=== PATIENT | male | born 1945 | race Hispanic/Latino ===

== ENCOUNTER 2017-11-20 08:52 | Outpatient (CLI) | payer MEDICARE, BC ==
[2017-11-20 11:06] LABS: Hemoglobin 14.2 g/dL (14.0-18.0); Mean Corpuscular HGB CONC 33.9 g/dL (32.0-36.0); Mean Corpuscular Hemoglobin 32.6 pg (27.0-31.0); Mean Corpuscular Volume 96.1 fL (78.0-98.0); Mean Platelet Volume 7.1 fL (7.4-10.4); Platelet Count 204 thou/uL (130-400); RBC Distribution Width 12.6 % (11.5-14.5); Red Blood Cell (RBC) Count 4.36 mill/uL (4.70-6.10); White Blood Cell (WBC) Count 6.5 thou/uL (4.8-10.8)
[2017-11-20 11:16] LABS: INR-International Normal Ratio 1.1; PTT 30.2 SEC (22.9-36.1); Prothrombin Time 13.8 SEC (12.0-14.7)
[2017-11-20 11:24] LABS: Anion Gap 12 mmol/L (10-20); BUN (Urea Nitrogen) 14 mg/dL (8.4-25.7); Calc. Creatinine Clearance 0 mL/min (70-130); Calcium 9.1 mg/dL (7.8-10.44); Carbon Dioxide 26 mmol/L (23-31); Chloride 102 mmol/L (98-107); Estimated GFR-MDRD Greater than 90; Glucose 111 mg/dL (83-110); Potassium 4.4 mmol/L (3.5-5.1); Sodium 136 mmol/L (136-145)
--- NOTE | 2017-11-20 13:36 | EKG ---
Test Reason : Blood Pressure : / mmHG Vent. Rate : 071 BPM Atrial Rate : 071 BPM P-R Int : 162 ms QRS Dur : 096 ms QT Int : 372 ms P-R-T Axes : 069 065 022 degrees QTc Int : 404 ms Normal sinus rhythm Nonspecific ST abnormality Abnormal ECG Confirmed by VIVIANA CHILDRESS ([id number]) on 11/20/2017 1:35:57 PM Referred By: FORTINO Confirmed By:VIVIANA CHILDRESS
== END 2017-11-20 08:53 | disposition home or self-care (01) ==
LOC: LABBT 08:52
PROVIDERS: ATTEND Urology
DX: Z01.818 Encounter for other preprocedural examination (principal); N40.1 Benign prostatic hyperplasia with lower urinary tract symptoms; R33.8 Other retention of urine
CPT/HCPCS: 80048; 85027; 85610; 85730; 86850; 86900; 86901; 93005; 93010

== ENCOUNTER 2017-11-26 09:33 | Observation (INO) | payer MEDICARE, BC ==
[2017-11-26] MEDS ORDERED: Levofloxacin 500 mg/D5W 100 ml Premix Bag ONE (10:40)
[2017-11-26] MEDS ORDERED: B & O ONE (11:32)
[2017-11-26] MEDS ORDERED: Fentanyl 100 MCG/2 ML VIAL ONE (11:53)
--- NOTE | 2017-11-26 12:11 | RAD ---
PA AND LATERAL OF THE CHEST: INDICATION: Preop evaluation. COMPARISON: Prior exam dated 09/23/13 and 02/21/14. FINDINGS: The extent of the pleural thickening involving the right lung base has improved. There are some resi dual patchy interstitial opacities within the right lower lobe which may reflect scarring and/or atel ectasis. No definite focal contusion is evident. The left lung is clear. There are vascular calcif ications involving the aortic arch. No acute osseous abnormality is demonstrated. IMPRESSION: 1. Improvement in the right-sided pleural effusion. 2. Residual interstitial prominence in the in the right lower lobe may reflect atelectasis or scarri ng. No focal consolidation is evident. The left lung is clear. POS: JENELLE
[2017-11-26] MEDS ORDERED: HumaLOG 300 UNITS/3 ML VIAL SC PRN (13:45)
[2017-11-26] MEDS ORDERED: Hyoscyamine Sulfate SL 0.125 mg Tablet SL PRN (13:45)
[2017-11-26] MEDS ORDERED: Dextrose 5% in Water 1,000 ML IV PRN (13:45)
[2017-11-26] MEDS ORDERED: Bisacodyl 10 MG SUPP PR PRN (13:45)
[2017-11-26] MEDS ORDERED: Acetaminophen 500 MG TAB PO PRN (13:45)
[2017-11-26] MEDS ORDERED: Dextrose 50% Abboject 50 ML SYRINGE SLOW IVP PRN (13:45)
[2017-11-26] MEDS ORDERED: diphenhydrAMINE 25 MG CAP PO PRN (13:45)
[2017-11-26] MEDS ORDERED: Morphine 4 MG/ML Carpuject IVP PRN (13:45)
[2017-11-26] MEDS ORDERED: hydrALAZINE 20 MG/ML VIAL SLOW IVP PRN (13:45)
[2017-11-26] MEDS ORDERED: Oxybutynin 5 MG TAB PO PRN (13:45)
[2017-11-26] MEDS ORDERED: Ondansetron HCl/PF 4 MG/2 ML Vial IVP PRN ×2 (13:45→14:53)
[2017-11-26] MEDS ORDERED: Mag-Al 1200 mg/1200 mg/30 ML UDCUP PO PRN (13:45)
[2017-11-26] MEDS ORDERED: traMADol HCl 50 MG TAB PO PRN (13:50)
[2017-11-26] MEDS ORDERED: Metoclopramide HCl 10 MG/2 ML VIAL ONE (14:33)
[2017-11-26] MEDS ORDERED: PROPOFOL 200 MG/20 ML VIAL ONE (14:33)
[2017-11-26] MEDS ORDERED: Dexamethasone 20 MG/5 ML VIAL ONE (14:33)
[2017-11-26] MEDS ORDERED: Lidocaine 1% PF 5 ML VIAL ONE (14:33)
[2017-11-26] MEDS ORDERED: Ondansetron HCl/PF 4 MG/2 ML Vial ONE (14:33)
[2017-11-26 14:43] LABS: Anion Gap 14 mmol/L (10-20); BUN (Urea Nitrogen) 13 mg/dL (8.4-25.7); Calc. Creatinine Clearance 97 mL/min (70-130); Calcium 8.5 mg/dL (7.8-10.44); Carbon Dioxide 22 mmol/L (23-31); Chloride 107 mmol/L (98-107); Estimated GFR-MDRD Greater than 90; Glucose 108 mg/dL (83-110); Potassium 4.3 mmol/L (3.5-5.1); Sodium 139 mmol/L (136-145)
[2017-11-26] MEDS ORDERED: Promethazine HCl 25 MG/ML VIAL IM PRN (14:53)
[2017-11-26] MEDS ORDERED: Promethazine HCl 25 MG/ML VIAL SLOW IVP PRN (14:53)
[2017-11-26] MEDS ORDERED: Nitroglycerin 0.4 MG TAB (25 Tab Bottle) SL PRN (15:20)
--- NOTE | 2017-11-26 17:23 | OP ---
DATE OF SURGERY: 11/26/2017 SERVICE: Urology. SURGEON: Samuel Paul M.D. PREOPERATIVE DIAGNOSIS: Benign prostatic hypertrophy with urinary retention. POSTOPERATIVE DIAGNOSIS: Benign prostatic hypertrophy with urinary retention. PROCEDURE PERFORMED: Transurethral resection of the prostate. INDICATIONS FOR PROCEDURE: Mr. Cervantes is a 72-year-old male who has had urinary retention a nd currently performs CIC. He is able to void on his own, but is not able to empty his bladder compl etely. Therefore, currently does intermittent catheterization 2-3 times a day. We discussed TURP an d cystoscopy did demonstrate significantly obstructive prostate with large median lobe. After discus kortney of risks and benefits, he agreed to proceed for the surgery. DESCRIPTION OF PROCEDURE: After identification of armband and verification of consent, the patient w as brought back to the operating room where he underwent general anesthesia with an LMA. He was then placed in dorsal lithotomy position and prepped and draped in usual sterile fashion. After appropri ate timeout, a lubricated 26 Bel[place]an resectoscope sheath with visual obturator was passed through the urethra. Near the membranous urethra, there was a flimsy stricture which was difficult to navigate p ast with the resectoscope to avoid causing significant mucosal trauma. The resectoscope was removed and a 17-Belizean rigid cystoscope was brought in and was navigated past the strictured area. The scop e was maneuvered around in all 4 quadrants to ensure adequate mobility of the stricture. The scope w as then removed and the visual obturator with resectoscope sheath was reintroduced back to the urethr a. There appeared to be good opening of the strictured area and so the resectoscope was able to be p assed all the way into the bladder. The visual obturator was then changed out for the bipolar resect oscope loop. The ureteral orifices were marked proximal and medial to the actual UO with the bipolar cautery function for later identification. Resection was started on the median lobe and resected ou t completely on the cutting current. The lateral lobes, anterior prostate and the rest of the median lobe was then resected all the way back to the verumontanum, taking care not to pass the verumontanu m to avoid sphincteric injury. Relaxing incisions were made at 5 and 7 o'clock on the prostate to im prove the bladder neck size. Upon completion, there was extremely good hemostasis and prostate was w mick open. All prostate chips were evacuated using the Spaseebo evacuator. Final and meticulous hemosta sis was performed of all visible vessels. Once there was assurance of complete hemostasis and all pr ostate chips were removed, both ureters were identified in orthotopic location unharmed. The resecto scope was then removed entirely and a 22-Belizean three-way Hood catheter was introduced with ease thr ough the urethra into the bladder with 30 mL of sterile water instilled into the balloon. This was i rrigated and found to be completely clear. CBI was initiated. The patient has catheter secured with a StatLock and a 16A B&O suppository placed in his rectum. He was then taken out of lithotomy, awak ened and taken to PACU for recovery in stable condition. COMPLICATIONS: None. ESTIMATED BLOOD LOSS: 40 mL. RETAINED TUBES AND DRAINS: A 22-Belizean three-way Hood catheter on CBI. SPECIMENS: Prostate chips. DISPOSITION: The patient will be kept in the hospital overnight and be discharged in the morning aft er a void trial.
[2017-11-26] MEDS: metFORMIN 850 MG TAB PO SCH (20:23)
[2017-11-26 20:35] VITALS: BMI 27.2
[2017-11-26] MEDS: Docusate 100 MG CAP PO SCH (20:46)
[2017-11-26] MEDS ORDERED: Atorvastatin Calcium 20 MG TAB PO SCH (21:00)
[2017-11-26] MEDS ORDERED: metFORMIN 850 MG TAB PO SCH (23:00)
[2017-11-27 05:53] LABS: #Eosinphils 0.2 thou/uL (0.0-0.7); #Lymphocytes 2.5 thou/uL (1.20-3.40); #Monocytes 0.8 thou/uL (0.11-0.59); #Neutrophils 6.1 thou/uL (1.40-6.50); %Basophils 0.5 % (0.0-1.0); %Lymphocytes 25.8 % (21.0-51.0); %Monocytes 8.7 % (0.0-10.0); Hemoglobin 13.8 g/dL (14.0-18.0); Mean Corpuscular HGB CONC 32.3 g/dL (32.0-36.0); Mean Corpuscular Hemoglobin 31.3 pg (27.0-31.0); Mean Corpuscular Volume 96.9 fL (78.0-98.0); Mean Platelet Volume 6.7 fL (7.4-10.4); Platelet Count 231 thou/uL (130-400); RBC Distribution Width 12.4 % (11.5-14.5); White Blood Cell (WBC) Count 9.7 thou/uL (4.8-10.8)
[2017-11-27 05:59] LABS: Anion Gap 12 mmol/L (10-20); BUN (Urea Nitrogen) 15 mg/dL (8.4-25.7); Calc. Creatinine Clearance 94 mL/min (70-130); Calcium 8.5 mg/dL (7.8-10.44); Carbon Dioxide 25 mmol/L (23-31); Chloride 104 mmol/L (98-107); Estimated GFR-MDRD Greater than 90; Glucose 81 mg/dL (83-110); Potassium 4.3 mmol/L (3.5-5.1); Sodium 137 mmol/L (136-145)
[2017-11-27] MEDS: metFORMIN 850 MG TAB PO SCH ×3 (08:30→11:43)
[2017-11-27] MEDS ORDERED: glyBURIDE 2.5 MG TAB PO SCH (09:00)
[2017-11-27] MEDS ORDERED: Polyethylene Glycol 3350 17 GM Packet PO PRN (09:00)
[2017-11-27] MEDS ORDERED: Multivitamin W/ Minerals 1 TAB PO SCH (09:00)
[2017-11-27] MEDS ORDERED: Calcium Carbonate + Vit D 250 MG TAB PO SCH (09:00)
[2017-11-27] MEDS: Docusate 100 MG CAP PO SCH (09:04)
[2017-11-27 11:22] VITALS: BP 110/56; TEMP 98.4
== END 2017-11-27 14:50 | disposition home or self-care (01) ==
LOC: SDC 09:33 → SJJU 13:45
PROVIDERS: ADMIT Urology; ATTEND Urology
PROC: 0VT08ZZ Resection of Prostate, Via Natural or Artificial Opening Endoscopic (ICD-10-PCS; principal; 2017-11-26)
DX: N41.1 Chronic prostatitis (principal); N40.1 Benign prostatic hyperplasia with lower urinary tract symptoms; R33.8 Other retention of urine; N35.011 Post-traumatic bulbous urethral stricture; G47.30 Sleep apnea, unspecified; E11.9 Type 2 diabetes mellitus without complications; Z88.8 Allergy status to other drugs, medicaments and biological substances; Z79.84 Long term (current) use of oral hypoglycemic drugs; Z79.82 Long term (current) use of aspirin; Z79.899 Other long term (current) drug therapy; Z87.891 Personal history of nicotine dependence
CPT/HCPCS: 51798; 52601; 71046; 80048 ×2; 82962 ×2; 85025; 88305; 96365; 96366; G0378; 36415; 36416; J0131; J1100; J1956; J2001; J2405; J2704; J2765; J3010

== ENCOUNTER 2019-01-22 23:47 | Inpatient (IN) | payer MEDICARE, BC ==
[2019-01-23 00:41] LABS: #Basophils 0.2 thou/uL (0.0-0.2); #Eosinphils 0.2 thou/uL (0.0-0.7); #Lymphocytes 3.6 thou/uL (1.20-3.40); #Monocytes 0.7 thou/uL (0.11-0.59); #Neutrophils 8.8 thou/uL (1.40-6.50); %Basophils 1.5 % (0.0-1.0); %Eosinophils 1.6 % (0.0-10.0); %Lymphocytes 26.7 % (21.0-51.0); %Monocytes 5.4 % (0.0-10.0); %Neutrophils 64.8 % (42.0-75.0); Hemoglobin 13.8 g/dL (14.0-18.0); Mean Corpuscular HGB CONC 33.7 g/dL (32.0-36.0); Mean Corpuscular Hemoglobin 32.3 pg (27.0-31.0); Mean Corpuscular Volume 95.6 fL (78.0-98.0); Platelet Count 251 thou/uL (130-400); Red Blood Cell (RBC) Count 4.28 mill/uL (4.70-6.10); White Blood Cell (WBC) Count 13.6 thou/uL (4.8-10.8)
[2019-01-23] MEDS ORDERED: Ondansetron PF 4 MG/2 ML Vial ONE (00:44)
[2019-01-23] MEDS ORDERED: Morphine 4 MG/ML VIAL ONE (00:44)
[2019-01-23 01:03] LABS: ALT (SGPT) 36 U/L (8-55); AST (SGOT) 42 U/L (5-34); Albumin 3.8 g/dL (3.4-4.8); Alkaline Phosphatase 78 U/L (40-150); Anion Gap 17 mmol/L (10-20); BUN (Urea Nitrogen) 17 mg/dL (8.4-25.7); Bilirubin, Total 0.5 mg/dL (0.2-1.2); Calc. Creatinine Clearance 0 mL/min (70-130); Calcium 8.9 mg/dL (7.8-10.44); Carbon Dioxide 21 mmol/L (23-31); Chloride 100 mmol/L (98-107); Estimated GFR-MDRD Greater than 90; Globulin 2.6 g/dL (2.4-3.5); Glucose 142 mg/dL (83-110); Lipase Less than 4 U/L (8-78); Potassium 4.2 mmol/L (3.5-5.1); Protein, Total 6.4 g/dL (5.8-8.1); Sodium 134 mmol/L (136-145)
[2019-01-23 02:30] LABS: Bilirubin Negative (Negative); Blood, Urine Negative (Negative); Clarity Clear (Clear); Glucose, Urine (Dipstick) Normal (Negative); Leukocyte Negative Leu/uL (Negative); Nitrite Negative (Negative); Protein, Urine (Dipstick) 10 mg/dL (Neg-Trace); Urobilinogen Normal mg/dL (Less than 2)
[2019-01-23] MEDS ORDERED: Lidocaine 1% (PF) 30 ML VIAL ONE (02:53)
[2019-01-23] MEDS ORDERED: Morphine 2 MG/ML SYRINGE SLOW IVP PRN (03:25)
[2019-01-23] MEDS ORDERED: Dextrose 50% Abboject 50 ML SYRINGE SLOW IVP PRN ×2 (03:25→03:29)
[2019-01-23] MEDS ORDERED: hydrALAZINE 20 MG/ML VIAL SLOW IVP PRN (03:25)
[2019-01-23] MEDS ORDERED: Promethazine HCl 25 MG/ML VIAL IM PRN (03:25)
[2019-01-23] MEDS ORDERED: Dextrose 5% in Water 1,000 ML IV PRN ×2 (03:25→03:29)
[2019-01-23] MEDS ORDERED: Ondansetron PF 4 MG/2 ML Vial IVP PRN (03:25)
--- NOTE | 2019-01-23 04:19 | HP ---
CHIEF COMPLAINT: Sudden right-sided abdominal pain. HISTORY OF PRESENT ILLNESS: The patient is a 73-year-old male, who had the spontaneous onset of severe right-sided abdominal pain that radiated to his shoulder and down to his pelvis at approximately 6:00 p.m. while watching television. It was a 10/10 in pain. No trauma. No previous episodes. PAST MEDICAL HISTORY: Diabetes, hypertension, sleep apnea, hyperlipidemia. PAST SURGICAL HISTORY: He has had a colonoscopy, urethral stricture repair, and a sleeve gastrectomy in 2013. MEDICATIONS: 1. Aspirin. 2. Metformin. 3. Lipitor. SOCIAL HISTORY: He is . No tobacco. No alcohol. ALLERGIES: 1. BYETTA. 2. JANUVIA. PHYSICAL EXAMINATION: VITAL SIGNS: Temperature 98.2, pulse 84, blood pressure 97/56. GENERAL: He is awake, alert, in some pain. HEENT: No jaundice. LUNGS: Clear. HEART: Regular rate and rhythm. ABDOMEN: Obese. There is an asymmetric swelling at the right side of his abdomen. It is extremely tender on the right side. LABORATORY DATA: His white count is 13.6, H and H of 13.8 and 40.9, platelet count 251. PT is 13.8, PTT is 30.2. Electrolytes; glucose is 142, otherwise fine. His AST is 42, ALT of 36, alkaline phosphatase 78, bilirubin of 0.5. CT scan shows a right lobe liver mass with active extravasation of blood and a subcapsular hematoma with some intraperitoneal bleeding. ASSESSMENT: Hepatic mass with spontaneous bleeding. PLAN: The plan is to type and cross. Interventional Radiology embolization. Job ID: [id number]
[2019-01-23 04:45] VITALS: BMI 26.9
[2019-01-23] MEDS: Sodium Chloride 0.9% 1,000 ML IV SCH ×2 (05:12→11:13)
[2019-01-23] MEDS: Morphine 4 MG/ML VIAL SLOW IVP PRN ×2 (05:52→08:00)
[2019-01-23 06:19] LABS: #Lymphocytes 1.1 thou/uL (1.20-3.40); #Monocytes 0.4 thou/uL (0.11-0.59); #Neutrophils 7.5 thou/uL (1.40-6.50); %Basophils 0.4 % (0.0-1.0); %Eosinophils 0.2 % (0.0-10.0); %Lymphocytes 12.4 % (21.0-51.0); %Monocytes 4.3 % (0.0-10.0); %Neutrophils 82.6 % (42.0-75.0); Hemoglobin 12.9 g/dL (14.0-18.0); Mean Corpuscular HGB CONC 33.9 g/dL (32.0-36.0); Mean Corpuscular Hemoglobin 32.9 pg (27.0-31.0); Mean Corpuscular Volume 97.1 fL (78.0-98.0); Mean Platelet Volume 6.6 fL (7.4-10.4); Platelet Count 248 thou/uL (130-400); RBC Distribution Width 12.8 % (11.5-14.5); Red Blood Cell (RBC) Count 3.93 mill/uL (4.70-6.10); White Blood Cell (WBC) Count 9.1 thou/uL (4.8-10.8)
[2019-01-23 06:39] LABS: Anion Gap 15 mmol/L (10-20); BUN (Urea Nitrogen) 15 mg/dL (8.4-25.7); Calc. Creatinine Clearance 95 mL/min (70-130); Calcium 8.4 mg/dL (7.8-10.44); Carbon Dioxide 22 mmol/L (23-31); Chloride 102 mmol/L (98-107); Estimated GFR-MDRD Greater than 90; Glucose 129 mg/dL (83-110); Potassium 4.6 mmol/L (3.5-5.1); Sodium 134 mmol/L (136-145)
[2019-01-23 07:03] LABS: HBCM Index 0.05 S/CO (0-0.79); HBSAg Index 0.16 S/CO (0-0.99); Hep A IgM AB Non-Reactive (NonReactive); Hep B Surf Ag Non-Reactive S/CO (NonReactive); Hep C IgG Ab Non-Reactive (NonReactive); Hep C Index 0.03 S/CO (0-0.79); Hepatitis B Core IgM Abs Non-Reactive (NonReactive)
[2019-01-23] MEDS: Famotidine/PF 20 mg/2ml Vial SLOW IVP SCH ×2 (08:26→21:05)
[2019-01-23] MEDS ORDERED: Multivitamins, Adult 10 ML, Folic Acid 1 MG, Thiamine HCl 100 MG in Dextrose 5 %-0.45 %... IV SCH (09:00)
--- NOTE | 2019-01-23 09:12 | CT ---
PRELIMINARY REPORT/[facility]/EMERGENCY AFTER HOURS PROCEDURE: EXAM: CT Abdomen and Pelvis With Contrast EXAM DATE/TIME: 01/23/2019 1:11 AM CLINICAL HISTORY: 73 years old, male; Abdominal pain; Patient HX: PT reports R sided pain starting at 1800, pain goes f rom his R shoulder to his R groin, pain is to the lateral side of body, no trauma. TECHNIQUE: Imaging protocol: Computed tomography of the abdomen and pelvis with intravenous contrast. COMPARISON: No relevant prior studies available. FINDINGS: Lungs: There is subpleural atelectasis of the dependent portions of the lungs. Liver: There is a 9.5 x 6.9 x 9.7 cm right liver mass which extends to the liver capsule with surroun ding hyperdense fluid in the perihepatic region suggestive of capsular rupture and small perihepatic hemorrhage. Gallbladder and bile ducts: Normal. No calcified stones. No ductal dilation. Pancreas: The pancreas appears normal. No ductal dilatation. Spleen: The spleen is normal. Adrenals: Normal. No mass. Kidneys and ureters: Normal. No hydronephrosis. Stomach and bowel: Unremarkable. No obstruction. No mucosal thickening. Appendix: No evidence of appendicitis. Intraperitoneal space: There is also complex ascites within the pelvis and left upper quadrant consis tent with hemorrhage. Vasculature: The vasculature demonstrates diffuse mild atherosclerotic calcification. Lymph nodes: Unremarkable. No enlarged lymph nodes. Bladder: Unremarkable as visualized. Reproductive: Unremarkable as visualized. Bones/joints: Unremarkable. No acute fracture. Soft tissues: Unremarkable. IMPRESSION: Right subcapsular liver mass with rupture and small to moderate hemorrhagic ascites. THIS REPORT CONTAINS FINDINGS THAT MAY BE CRITICAL TO PATIENT CARE. The findings were verbally communicated via t elephone conference with JOSE MARTIN PATTERSON at 2:12 AM CDT on 01/23/2019. The findings were acknowledged and understood. Thank you for allowing us to participate in the care of your patient. Dictated and Authenticated by: Kai Smith MD 01/23/2019 2:18 AM Central Time ([place] & [place]) FINAL REPORT ABDOMEN CT WITH CONTRAST PELVIC CT WITH CONTRAST: HISTORY: Right-sided pain. COMPARISON: 09/23/2013. FINDINGS: ABDOMEN CT: Lung bases are clear. There are coronary calcifications. There is a heterogeneous mass in the right hepatic lobe measuring 8.8 cm anterior posterior x 6.1 cm mediolateral x approximately 7.7 cm craniocaudal. This mass extends into the hepatic capsule and the re is adjacent hyperdense fluid. There is linear enhancement within this fluid suggesting active ext ravasation of contrast. There is evidence of arterial phase enhancement within this lesion. Overall , this mass has a heterogeneous attenuation. There is complex fluid in the upper abdomen, including the perisplenic region. CT evidence of sludge and stones without evidence of cholecystitis. Bowel gas pattern is nonspecific. There is complex fluid in the pelvis. IMPRESSION: This report is in agreement with the preliminary report by [facility]. There is a complex mass in the right hepatic lobe with evidence of probable hemorrhage and rupture. There is extravasated contrast in th e hyperdense right perihepatic fluid. Additional complex hemorrhagic fluid is noted in the left uppe r quadrant and pelvis. POS: OFF
--- NOTE | 2019-01-23 09:14 | RAD ---
CHEST 1 VIEW: HISTORY: Pain upon inspiration. COMPARISON: 11/26/2017. FINDINGS: Portable upright chest demonstrates a normal cardiac silhouette. The pulmonary vessels and hilum are normal. Blunting of both costophrenic angles likely due to atelectasis. No consolidation or masses . No pneumothorax or osseous abnormalities. IMPRESSION: Blunting of both costophrenic angles likely due to atelectasis. POS: OFF
[2019-01-23 12:54] LABS: Hemoglobin 13.8 g/dL (14.0-18.0)
[2019-01-23] MEDS ORDERED: ISOVUE-370 76%-LOCM 1 ML ONE (13:01)
[2019-01-23] MEDS ORDERED: Furosemide 20 MG/2 ML VIAL SLOW IVP SCH (13:15)
[2019-01-23] MEDS ORDERED: glyBURIDE 5 MG TAB PO SCH (13:15)
--- NOTE | 2019-01-23 13:32 | CON ---
DATE OF CONSULTATION: 01/23/2019 SERVICE: Pulmonary Medicine. REASON FOR CONSULTATION: ICU patient. HISTORY OF PRESENT ILLNESS: The patient is a pleasant 73-year-old male with past medical history significant for liver lesion. He started having onset of abdominal pain that radiated into his shoulder. Ultimately, he was discovered to have a bleeding lesion in the liver. He went for embolization and was tucked into the ICU afterwards. At this point, his abdominal discomfort is much improved. He still has a pleuritic pain whenever he takes a deep breath, but more so when he breathes out completely. This was a sudden onset of abdominal discomfort and prior to this event, he is in his usual state of health. He currently denies any shortness of breath, cough, nausea, or vomiting. He has had normal bowel movements today. PAST MEDICAL HISTORY: 1. Type 2 diabetes mellitus. 2. Obstructive sleep apnea. 3. Dyslipidemia. 4. Hypertension. PAST SURGICAL HISTORY: 1. Colonoscopy. 2. Repair of urethral stricture. 3. Gastric sleeve surgery in 2013. 4. Embolization of liver lesion. SOCIAL HISTORY: Negative for alcohol, tobacco, or illicit drug use. He is . He has no exposure to chemicals, dust, or tuberculosis. Apparently, he did have some asbestos exposure when he was younger. FAMILY HISTORY: Noncontributory. ALLERGIES: ABILIO WALL. MEDICATIONS: List of his inpatient medications were reviewed. No specific updates were made at this time. REVIEW OF SYSTEMS: General, head, ears, eyes, nose, throat, cardiovascular, respiratory, GI, , musculoskeletal, neurologic, and skin is negative except as mentioned in the HPI. PHYSICAL EXAMINATION: VITAL SIGNS: Afebrile; pulse 74; blood pressure 160/73; respirations 21; and saturation 96%, currently on room air. GENERAL: The patient is awake and alert, in no apparent distress. LUNGS: Very good air entry. No prolonged expiratory phase. Dependent crackles are noted. HEART: Normal rate, regular. ABDOMEN: Distended. Bowel sounds are positive. There is some tenderness to palpation, particularly in the right upper quadrant. Minimal rebound is present. No guarding. MUSCULOSKELETAL: No cyanosis or clubbing. 2 to 3+ pitting is present in bilateral lower extremities. NEUROLOGIC: Grossly nonfocal. GENITOURINARY: No Hood catheter in place. LABORATORY DATA: Hemoglobin 13.8 and stable. CBC was normal as of this morning. Basic metabolic profile is normal. Troponin is negative x1. Amylase and liver function studies are essentially unremarkable. AFP is 5.8, falling within the normal limits. Urinalysis is negative. Hepatitis A, B, and C are all nonreactive. IMAGING DATA: CT of the abdomen demonstrates right subcapsular liver mass with rupture and [id number] hemorrhagic ascites. This liver does not have a cirrhotic morphology. In 2013, I could not see a liver lesion. ASSESSMENT: 1. Subcapsular liver hemorrhage, status post embolization. 2. Acute blood loss anemia, stable. 3. Liver mass, possible. DISCUSSION AND PLAN: I will give him a brief course of steroids to see if this helps the pleuritic discomfort. This will be 20 mg on a daily basis. Since I am doing this, we will give him some GI prophylaxis. Banana bag will be interrupted. I will provide him with a dose of Lasix right now as he is a touch volume up. If his hemoglobin remains stable, he will be a candidate for transition to the floor. Eventually, he will need investigation into this liver lesion, but this will likely need to be postponed until the bleeding stops and has some time to clear. When he leaves the ICU, he will have no further requirement for pulmonary or critical care opinion and I will sign off. Please call with any change to his condition. 70 minutes have been devoted to this patient in various activities. I personally reviewed all imaging studies and laboratory data noted within this document. For fifty percent of this time, I was interacting with the patient at the bedside or coordinating care with the care team. For the remainder of the time I was immediately available to the patient in the hospital unit. Job ID: [id number] MTDD
--- NOTE | 2019-01-23 15:14 | PRG ---
DATE OF SERVICE: 01/23/2019 SUBJECTIVE: The patient is having some pain, but it is better. OBJECTIVE: VITAL SIGNS: On examination, he is afebrile, pulse 74, and blood pressure 127/67. GENERAL: He is awake, alert. ABDOMEN: Distended. Mild tenderness. LABORATORY DATA: His white count is down to 9.1, H and H are stable at 13.8 and 40.9. His alpha-fetoprotein marker is normal at 5.8. ASSESSMENT: Liver mass of unclear etiology, causing bleeding. PLAN: Continue workup by GI. Transferred to floor. Job ID: [id number]
[2019-01-23 15:18] LABS: Hemoglobin 13.3 g/dL (14.0-18.0)
[2019-01-23] MEDS: Insulin Regular 300 UNITS/3 ML VIAL SC PRN ×2 (15:54→21:06)
--- NOTE | 2019-01-23 16:47 | CON ---
DATE OF CONSULTATION: CHIEF COMPLAINT: Abdominal pain. HISTORY OF PRESENT ILLNESS: Mr. Cervantes is a 73-year-old man, who had sudden onset right upper quadrant abdominal pain, which was severe and sharp at 6 p.m. last night. The pain persisted. He went onto the emergency room for further care. He had a CT scan of the abdomen and pelvis performed that showed active bleeding into a right subcapsular liver mass with rupture and hemorrhagic ascites. The liver mass measured 9.5 x 9.7 cm. He underwent embolization emergently by Dr. Teran last night with coiling of the artery supplying the liver lesion. The patient's pain has since improved and he has had no further signs of ongoing bleeding. His hemoglobin is stable. GI was consulted to further evaluate the source of the original liver mass. The patient has had no nausea or vomiting. He did have a gastric sleeve surgery 5 years ago and states he lost 100 to 150 pounds since then. He has lost maybe 5 pounds over the last 6 months. He has had no diarrhea, constipation, or blood in the stool. No jaundice or itching. No prior known liver problems or cirrhosis. PAST MEDICAL HISTORY: 1. Diabetes mellitus, type 2. 2. Obstructive sleep apnea. 3. Hyperlipidemia. 4. Hypertension. 5. He reports an episode of pancreatitis a few years ago secondary to [place]. 6. Colon polyps removed. His last colonoscopy was several years ago and Dr. Barger has followed him for these. He states that he is due for colonoscopy now. This will need to be verified with the patient's record. FAMILY HISTORY: Positive for prostate cancer in his brother. His sister had ovarian cancer. SOCIAL HISTORY: He had social alcohol use around once per week in the past. No alcohol in the last few years. He quit smoking a few years ago. No drugs. ALLERGIES: JANUVIA AND BYETTA. MEDICATIONS: Prior to admission, include; 1. Aspirin 81 mg daily. 2. Calcium with vitamin D. 3. Atorvastatin. 4. Metformin. 5. Glyburide. REVIEW OF SYSTEMS: Negative x10 systems reviewed except as stated in history of present illness. PHYSICAL EXAMINATION: VITAL SIGNS: Temperature is 98.3, pulse 73, and blood pressure 94/54. GENERAL: He is in no acute distress. Alert and oriented x3. HEENT: Eyes have no scleral icterus. Oropharynx is clear without lesions. No cervical or supraclavicular lymphadenopathy. LUNGS: Clear to auscultation bilaterally. HEART: Regular rate and rhythm without murmur. ABDOMEN: Soft. Mild tenderness in the right upper quadrant without guarding. Bowel sounds are present. EXTREMITIES: No lower extremity edema. LABORATORY DATA: White blood cell count 9.1, hemoglobin is 13.3 and unchanged since midnight last night to 1510 hours this afternoon. Creatinine 0.74, bilirubin 0.5, AST 42, ALT 36, alkaline phosphatase 78, and albumin 3.8. His alpha-fetoprotein is 5.8. Viral hepatitis screen for acute viral hepatitis is negative. IMPRESSION: 1. Complex liver mass in the right lobe of the liver with hemorrhage and rupture and hemorrhagic ascites. This was treated with embolization by Vascular Surgery. He has no signs of ongoing bleeding and his pain has improved. 2. Regarding the liver mass, the question is whether or not this is malignant or not. His alpha-fetoprotein is normal, which makes a primary hepatoma less likely. There is no known prior history of cirrhosis. He has had a colonoscopy; however, the exact time of this will have to be reviewed in the office record. He has been followed by Dr. Barger previously. This could be a benign lesion as well. RECOMMENDATIONS: 1. After he reabsorbs some of the blood and clot, then reimaging of the mass with MRI may help better differentiate what the cause of the mass is. He is not a candidate for biopsy currently, but at some point in future this might become necessary. For now, we will just monitor clinically. Follow his hemoglobin, and once he stabilized from a bleeding standpoint, then I would expect he would be able to go home in a couple of days or so. 2. Dr. Barger will pick back up tomorrow. Job ID: [id number]
[2019-01-23 21:41] LABS: Hemoglobin 13.2 g/dL (14.0-18.0)
[2019-01-24 04:09] LABS: Hemoglobin 12.3 g/dL (14.0-18.0)
[2019-01-24] MEDS: glyBURIDE 5 MG TAB PO SCH (08:03)
[2019-01-24] MEDS: Furosemide 20 MG/2 ML VIAL SLOW IVP SCH (09:31)
[2019-01-24] MEDS: Famotidine 20 MG TAB PO SCH ×2 (09:34→20:57)
[2019-01-24 10:02] LABS: Hemoglobin 13.5 g/dL (14.0-18.0)
[2019-01-24] MEDS: Insulin Regular 300 UNITS/3 ML VIAL SC PRN (10:42)
--- NOTE | 2019-01-24 11:08 | OP ---
DATE OF PROCEDURE: 01/23/2019 PREOPERATIVE DIAGNOSIS: Hemorrhage from right hepatic mass. PROCEDURE PERFORMED: Abdominal aortography with selective celiac and right hepatic angiography and embolization of a branch of the right hepatic artery feeding the tumor that resulted in cessation of bleeding using 3 x 6 mm interlock coils x2. ANESTHESIA: Local. CONTRAST: 26 mL. FLUORO: 7.1 minutes. DESCRIPTION OF PROCEDURE: After adequate prepping and draping, 1% lidocaine was used to infiltrate the right groin where ultrasound-guided puncture of the right common femoral artery was performed. 5-Gambian dilator and sheath were placed over a 0.035 wire, following which a Contra catheter was used to take PA and lateral projections. A [place] catheter and Glidewire were used to cannulate the celiac artery and initially the splenic artery was cannulated. During manipulation, the catheter kicked back into the aorta and repeat catheterization of the celiac artery resulted in the wire going out the right hepatic artery and a glide catheter advanced. Angiography was obtained, following which, a direccion angled catheter was advanced over a 0.014 Luge wire was directed into the vessel responsible for the bleeding. A 3 x 6 interlock coil was deployed. After about 3 minutes, there was still blush and a 2nd coil was deployed at the site, at which point there was no further bleeding from the mass. Catheters were removed and sheath is being removed. The patient tolerated the procedure well. Job ID: [id number] [facility]
--- NOTE | 2019-01-24 15:03 | PRG ---
DATE OF SERVICE: 01/24/2019 SUBJECTIVE: The patient reports that he feels fine. He has eaten. Pain is okay. He is just waiting on a floor bed. OBJECTIVE: VITAL SIGNS: His temperature is 98.3, pulse 103, and blood pressure 113/66. GENERAL: He looks fine. ABDOMEN: Soft, nondistended, and nontender. LABORATORY DATA: His H and H are 13.5 and 39.7. ASSESSMENT: Liver mass of unknown etiology. PLAN: The patient reports that Dr. Barger came by and he is going to do further workup on this. Job ID: [id number]
[2019-01-25 03:48] LABS: Hemoglobin 12.4 g/dL (14.0-18.0)
--- NOTE | 2019-01-25 07:52 | PRG ---
DATE OF SERVICE: 01/24/2019 Mr. Cervantes came in early on 01/23 with pain and was found to have a hemorrhagic lesion in the right lobe of the liver around 6:00 p.m. the evening before. He had a stable hemoglobin on presentation. CT showed extravasation of blood in the subcapsular hematoma. Dr. Teran embolized the lesion of branch of right hepatic artery and the bleeding stopped. So far, the patient has been stable. His pain is diminished. He remains in the ICU. His family is at the bedside. The patient has been afebrile. Temperature 98.3, blood pressure 113/66, pulse 78-101 LABORATORY DATA: Hemoglobin stable at 13.5 at 9:47 this morning. Hepatitis A, B, and C serologies were nonreactive on admission and hepatoma screen with AFP is normal. EXAM: alert oriented, lcta, abdomen soft full ruq non tender. no rebound no guarding no hepatomegaly. BS + no edema. ASSESSMENT: Mr. Cervantes had a bleed from a lesion in the right lobe of the liver , appeared to be arterially fed. Differential diagnosis includes AVM, adenoma or hepatocellular carcinoma, metastatic tumor would be less likely. RECOMMENDATIONS: 1. Check CEA and CA-19-9. 2. Consider three-phase CT versus MRI of the abdomen to evaluate the liver further. We will discuss with Radiology for best imaging modality. Job ID: [id number] MTDD
[2019-01-25] MEDS: glyBURIDE 5 MG TAB PO SCH (08:18)
[2019-01-25] MEDS: Famotidine 20 MG TAB PO SCH ×2 (08:20→21:03)
[2019-01-25] MEDS: Furosemide 20 MG/2 ML VIAL SLOW IVP SCH ×2 (08:25→09:42)
[2019-01-25 09:38] LABS: Hemoglobin 12.5 g/dL (14.0-18.0)
[2019-01-25] MEDS: Insulin Regular 300 UNITS/3 ML VIAL SC PRN (12:15)
[2019-01-25] MEDS ORDERED: traMADol HCl 50 MG TAB PO PRN (12:25)
[2019-01-25] MEDS ORDERED: Docusate 100 MG CAP PO SCH ×2 (12:30→21:00)
--- NOTE | 2019-01-25 13:27 | MRI ---
MRI ABDOMEN WITH AND WITHOUT IV CONTRAST: HISTORY: Liver mass with rupture and hemorrhagic ascites, status post embolization. CORRELATION: CT scan from 01/23/2019. FINDINGS: There is an 8.5 x 6 x 7.5 cm mass in the right lobe of the liver with heterogeneous post contrast enh ancement and small focal areas of necrosis/ blood products. No abnormal biliary ductal dilatation is seen. There is mild interval decrease in the perihepatic hemorrhage noted on the CT scan. The spleen, pancreas, adrenal glands, and kidneys are normal. Multiple gallstones are present. No l ymphadenopathy is seen. There is no evidence of aneurysmal dilatation of the abdominal aorta. Bone marrow signal is normal. IMPRESSION: Hepatic mass, suspicious for neoplasm. Evaluation with Tc99m labelled RBC scan and PET scan would be helpful prior to biopsy. POS: [facility]
[2019-01-25 15:46] LABS: Hemoglobin 13.7 g/dL (14.0-18.0)
--- NOTE | 2019-01-25 18:32 | PRG ---
DATE OF SERVICE: 01/25/2019 SUBJECTIVE: Mr. Cervantes is feeling okay. He is without any nausea or vomiting. Still has some pain and discomfort in the upper abdomen. OBJECTIVE: VITAL SIGNS: Temperature is 98.7, blood pressure 104/63, pulse 88. ABDOMEN: Soft, nontender. LABORATORY DATA: CEA was normal at 1.96. MRI of the liver, the impression was hepatic mass suspicious for neoplasia. No differential diagnosis was given. We will need to review with Radiology tomorrow. ASSESSMENT: 1. Hemorrhagic mass of the liver, it appears to have arterial blood flow. AVM, hepatoma, or adenoma were all be concerns. We will need to review with Radiology tomorrow. 2. I think that if he remains stable, whenever surgery is ready to allow him go home, I think that is fine and we will set him up to see [facility] as an outpatient for further evaluation. I do not think we are going to get a definitive diagnosis from Radiology here, and if we did and if that was a hepatoma or adenoma, it would probably need to be removed seen in [place] for that. If we do not get a definitive diagnosis, he is going to need a transjugular liver biopsy as percutaneous biopsy is too high risk and this lesion is abutting the capsule of liver and has already bled once. Job ID: [id number]
[2019-01-25] MEDS ORDERED: Insulin Regular 300 UNITS/3 ML VIAL SC PRN (19:53)
--- NOTE | 2019-01-25 19:56 | PDOC.HOSPP ---
- Subjective Encounter Date: 01/25/19 Encounter Time: 16:00 Subjective: Patient seen and examined for med mngt. Admitted for bleeding in liver mass. Abd pain improving. No fever or chills. No nausea. No new complaints. No overnight events - Objective Vital Signs & Weight: Vital Signs (12 hours) Temp Pulse Resp BP Pulse Ox 01/25/19 08:20 94 L 01/25/19 08:01 98.7 F 88 18 104/63 94 L Weight Admit Weight 171 lb Weight 171 lb 8.314 oz Most Recent Monitor Data Heart Rate from ECG 111 NIBP 126/69 NIBP BP-Mean 88 Respiration from ECG 25 SpO2 96 I&O: 01/24/19 01/25/19 01/26/19 06:59 06:59 06:59 Intake Total 2177 1140 1999 Output Total 1620 2700 Balance 557 -1560 1999 Result Diagrams: 01/25/19 15:30 01/23/19 06:12 Additional Labs: Accuchecks 01/25/19 01/25/19 01/25/19 16:37 12:00 05:32 POC Glucose 106 187 H 124 H 01/24/19 20:45 POC Glucose 133 H Radiology Reviewed by me: Yes (MRI - Liver mass) Hospitalist ROS - Review of Systems Respiratory: denies: cough, dry, shortness of breath, hemoptysis, SOB with excertion, pleuritic pain, sputum, wheezing, other Cardiovascular: denies: chest pain, palpitations, orthopnea, paroxysmal noc. dyspnea, edema, light headedness, other - Medication Medications: Active Medications Generic Name Dose Route Start Last Admin Trade Name Freq PRN Reason Stop Dose Admin Famotidine 20 mg 01/24/19 09:00 01/25/19 08:20 Pepcid PO 20 mg BID HERLINDA Administration Glyburide 5 mg 01/24/19 08:00 01/25/19 08:18 Diabeta PO 5 mg QAM-WM HERLINDA Administration Morphine Sulfate 4 mg 01/23/19 03:25 01/23/19 08:00 Morphine SLOW IVP 4 mg Q2H PRN Administration Moderate Pain (4-6) Tramadol HCl 50 mg 01/25/19 12:25 01/25/19 12:37 Ultram PO 50 mg Q6H PRN Administration Pain - Exam General Appearance: NAD Heart: RRR, no rubs Respiratory: CTAB, no rales, no ronchi Gastrointestinal: soft, non-distended, tender to palpation (mild - RUQ) Extremities: no edema Hosp A/P (1) Liver mass Code(s): R16.0 - HEPATOMEGALY, NOT ELSEWHERE CLASSIFIED Status: Acute (2) Acute blood loss anemia Code(s): D62 - ACUTE POSTHEMORRHAGIC ANEMIA Status: Acute (3) DM2 (diabetes mellitus, type 2) Status: Chronic Qualifiers: Chronic kidney disease stage: stage 2 (mild) (4) Hyponatremia Code(s): E87.1 - HYPO-OSMOLALITY AND HYPONATREMIA Status: Acute (5) BPH (benign prostatic hyperplasia) Code(s): N40.0 - BENIGN PROSTATIC HYPERPLASIA WITHOUT LOWER URINRY TRACT SYMP Status: Chronic (6) Cholelithiases Code(s): K80.20 - CALCULUS OF GALLBLADDER W/O CHOLECYSTITIS W/O OBSTRUCTION Status: Chronic (7) HLD (hyperlipidemia) Code(s): E78.5 - HYPERLIPIDEMIA, UNSPECIFIED Status: Chronic - Plan plan discussed w/ family Cont Glyburide Change H/H to Q12 AM labs Hold Statins Hold Metformin due to contrast Ambulate Full code. DPOA - self/family
[2019-01-25] MEDS: Senokot S 8.6-50 MG TAB PO SCH (21:03)
[2019-01-26 06:46] LABS: Hemoglobin 13.2 g/dL (14.0-18.0); Platelet Count 281 thou/uL (130-400)
[2019-01-26 07:09] LABS: ALT (SGPT) 103 U/L (8-55); AST (SGOT) 150 U/L (5-34); Albumin 4.1 g/dL (3.4-4.8); Alkaline Phosphatase 90 U/L (40-150); Anion Gap 13 mmol/L (10-20); BUN (Urea Nitrogen) 10 mg/dL (8.4-25.7); Bilirubin, Total 1.1 mg/dL (0.2-1.2); Calc. Creatinine Clearance 102 mL/min (70-130); Calcium 9.4 mg/dL (7.8-10.44); Carbon Dioxide 28 mmol/L (23-31); Chloride 98 mmol/L (98-107); Estimated GFR-MDRD Greater than 90; Glucose 121 mg/dL (83-110); Magnesium 2.2 mg/dL (1.6-2.6); Potassium 3.8 mmol/L (3.5-5.1); Protein, Total 7.1 g/dL (5.8-8.1); Sodium 135 mmol/L (136-145)
[2019-01-26] MEDS: Senokot S 8.6-50 MG TAB PO SCH (08:11)
[2019-01-26] MEDS: Famotidine 20 MG TAB PO SCH (08:11)
[2019-01-26] MEDS: glyBURIDE 5 MG TAB PO SCH (08:11)
[2019-01-26] MEDS ORDERED: Polyethylene Glycol 3350 17 GM Packet PO SCH (09:00)
--- NOTE | 2019-01-26 14:01 | PDOC.HOSPP ---
- Subjective Encounter Date: 01/26/19 Encounter Time: 08:00 Subjective: Patient seen and examined for med mngt. RUQ abd pain improving. No fever or chills. No new complaints. No overnight events - Objective Vital Signs & Weight: Vital Signs (12 hours) Temp Pulse Resp BP Pulse Ox 01/26/19 08:00 93 L 01/26/19 07:25 97.2 F L 82 20 113/63 93 L Weight Admit Weight 171 lb Weight 171 lb 8.314 oz Most Recent Monitor Data Heart Rate from ECG 111 NIBP 126/69 NIBP BP-Mean 88 Respiration from ECG 25 SpO2 96 I&O: 01/25/19 01/26/19 01/27/19 06:59 06:59 06:59 Intake Total 1140 2800 Output Total 2700 Balance -1560 2800 Result Diagrams: 01/26/19 06:10 01/26/19 06:10 Additional Labs: Accuchecks 01/26/19 01/26/19 01/25/19 11:04 04:45 19:38 POC Glucose 164 H 103 203 H 01/25/19 16:37 POC Glucose 106 Hospitalist ROS - Review of Systems Respiratory: denies: cough, dry, shortness of breath, hemoptysis, SOB with excertion, pleuritic pain, sputum, wheezing, other Cardiovascular: denies: chest pain, palpitations, orthopnea, paroxysmal noc. dyspnea, edema, light headedness, other - Medication Medications: Active Medications Generic Name Dose Route Start Last Admin Trade Name Freq PRN Reason Stop Dose Admin Famotidine 20 mg 01/24/19 09:00 01/26/19 08:11 Pepcid PO 20 mg BID HERLINDA Administration Glyburide 5 mg 01/24/19 08:00 01/26/19 08:11 Diabeta PO 5 mg QAM-WM HERLINDA Administration Insulin Human Regular 0 units 01/25/19 19:53 01/26/19 11:39 Humulin R SC 2 unit .MILD SLIDING SCALE PRN Administration Mild Correctional Scale Morphine Sulfate 4 mg 01/23/19 03:25 01/23/19 08:00 Morphine SLOW IVP 4 mg Q2H PRN Administration Moderate Pain (4-6) Polyethylene Glycol 17 gm 01/26/19 09:00 01/26/19 08:11 Miralax PO 17 gm DAILY HERLINDA Administration Senna/Docusate Sodium 1 tab 01/25/19 21:00 01/26/19 08:11 Senokot S PO 1 tab BID HERLINDA Administration Tramadol HCl 50 mg 01/25/19 12:25 01/25/19 12:37 Ultram PO 50 mg Q6H PRN Administration Pain - Exam General Appearance: NAD Heart: RRR, no rubs Respiratory: CTAB, no rales Gastrointestinal: soft, normal bowel sounds, tender to palpation (mild) Extremities: no edema Neurological: no new deficit Hosp A/P (1) Liver mass Code(s): R16.0 - HEPATOMEGALY, NOT ELSEWHERE CLASSIFIED Status: Acute (2) Acute blood loss anemia Code(s): D62 - ACUTE POSTHEMORRHAGIC ANEMIA Status: Acute (3) DM2 (diabetes mellitus, type 2) Status: Chronic Qualifiers: Chronic kidney disease stage: stage 2 (mild) (4) Hyponatremia Code(s): E87.1 - HYPO-OSMOLALITY AND HYPONATREMIA Status: Acute (5) BPH (benign prostatic hyperplasia) Code(s): N40.0 - BENIGN PROSTATIC HYPERPLASIA WITHOUT LOWER URINRY TRACT SYMP Status: Chronic (6) Cholelithiases Code(s): K80.20 - CALCULUS OF GALLBLADDER W/O CHOLECYSTITIS W/O OBSTRUCTION Status: Chronic (7) HLD (hyperlipidemia) Code(s): E78.5 - HYPERLIPIDEMIA, UNSPECIFIED Status: Chronic - Plan DVT proph w/SCDs Cont Glyburide with mild sliding scale Change H/H to QAM Hold Statins due to elevated LFTs Resume Metformin after 48 hr
--- NOTE | 2019-01-26 17:00 | PRG ---
DATE OF SERVICE: 01/26/2019 SUBJECTIVE: Mr. Cervantes still has some pain in his upper abdomen, bandlike across the top. He has no fever or chills. He has had no bowel movement, but he is eating. OBJECTIVE: VITAL SIGNS: Temperature is 97.2, pulse 82, blood pressure 113/63. LUNGS: Clear. ABDOMEN: Soft. Mild tender without rebound or guarding. LABORATORY DATA: BUN and creatinine are 10 and 0.6, glucose 164. AST, ALT 150 and 103 today, up from 42 and 36 on the 15th, alkaline phosphatase 90, mag is, normal, protein 7.1, albumin 4.2. CA 19-9 tumor marker, AFP are all normal. Imaging reviewed with Dr. Roberson of Radiology. He is concerned this is a hepatoma like lesion, although it has had previous bleeding. It is unclear to know. There is no evidence of abnormal liver otherwise. There is no evidence of adenopathy otherwise. He has negative tumor markers for alpha fetoprotein, CEA and CA 19-9. RECOMMENDATION: At this time there has been no further bleeding since admission. This is hospital day 4. I think if he has no signs of bleeding over the next day he can probably go home. I have reached out to hepatology at [facility]. I think this is a lesion that needs to be considered to be resected. Radiologist does not feel it is hemangioma or an adenoma. We could consider tagged scan. Even if it is a hemangioma it has already bled once and ideally the treatment would probably be a local resection of right hepatic lobe. He does have some underlying diabetes, but otherwise pretty stable. We will wait for an answer back from sharepoint developer in [place] to see if they would be willing to see him and whether we can let him arrange this as outpatient next week or whether we need to transfer him directly as an inpatient. We will continue to follow along with you. Job ID: [id number]
[2019-01-26 18:44] VITALS: BP 118/72; TEMP 98.6
--- NOTE | 2019-01-26 20:34 | DIS ---
DATE OF ADMISSION: 01/23/2019 DATE OF DISCHARGE: 01/26/2019 DISCHARGE DISPOSITION: Home. FOLLOWUP: 1. Follow up with primary care physician, Dr. Kai Chavez in 1 week. 2. Follow up with Dr. Barger as an outpatient. 3. The patient will follow up with bellhop captain at [facility]. INPATIENT CONSULTANTS: 1. Hospitalist Service. 2. Gastroenterology. 3. Dr. Teran. PRIMARY ATTENDING: General Surgery, Dr. Thrasher. DISCHARGE MEDICATIONS: 1. Glyburide 5 mg daily. 2. Metformin 850 mg 3 times a day. 3. Calcium with vitamin D daily. BRIEF HOSPITAL COURSE: The patient is a 73-year-old male who presented to the emergency room on 23 January 2019 with sudden onset of right-sided abdominal discomfort. His workup was consistent with hepatic mass with spontaneous bleeding. He underwent abdominal aortography with selective celiac and right hepatic angiography and embolization of the branch of the right hepatic artery feeding the tumor. An abdominal MRI was obtained that showed hepatic mass suspicious for neoplasm. He was evaluated by Gastroenterology, Dr. Barger, who recommended a followup with bellhop captain at [place] for possible resection. He has been cleared by consultants for discharge. SIGNIFICANT LABS: Hepatitis profile was negative. Tumor markers; AFP, CA-19-9, and CEA have been negative. FINAL DIAGNOSES: 1. Hepatic mass with spontaneous bleeding, requiring embolization. 2. Acute blood loss anemia. His hemoglobin dropped to 12.0 from 13.8 on admission. 3. Diabetes mellitus, type 2. 4. Hyponatremia. 5. Benign prostatic hypertrophy. 6. Cholelithiasis. 7. Hyperlipidemia. 8. Obstructive sleep apnea. 9. Mild metabolic acidosis. Plan of care was discussed with the patient and the family in detail. They stated understanding. Job ID: [id number]
--- NOTE | 2019-01-28 00:47 | PQF ---
S[employer] Applications Tester Crystal Reports Winform JW Tello DAKOTAH GOLDEN MD [id number] CLINICAL DOCUMENTATION CLARIFICATION FORM: POST DISCHARGE Addendum to original discharge summary date: ____ Late entry note date: __ DATE: 01/28/19 ATTN: DAKOTAH GOLDEN MD Please exercise your independent, professional judgment in responding to the clarification form. Clinical indicators are provided on the bottom of this form for your review Please check appropriate box(s): [ ] Neoplasm: Type:[ ] Primary [ ] Secondary[ ] In situ[ ] Overlapping primary [ ] Malignant [ ] Benign[ ] Undetermined Behavior [ ] Unspecified [ x] Unable to determine For continuity of documentation, please document condition throughout progress notes and discharge summary. Thank You. CLINICAL INDICATORS - SIGNS / SYMPTOMS / LABS - Hepatic mass suspicious for neoplasm- DS, 01/26, DAKOTAH GOLDEN MD - Hepatic mass with spontaneous bleeding, requiring embolization-DS, 01/26, DAKOTAH GOLDEN MD - Radiologist does not feel it is hemangioma or an adenoma-Progress note, 01/26 , Dane Barger MD - Adenoma or hepatocellular carcinoma, metastatic tumor would be less likely- Progress note, 01/24, Dane Barger MD - liver mass with rupture and hemorrhagic ascites, s/p embolization- MRI report , 01/23 RISK FACTORS - Embolization of a branch of the right hepatic artery feeding the tumor- OP report, 01/23, Norm Teran MD - Hemorhage from right hepatic mass-OP report, 01/23, Norm Teran MD TREATMENT: -Abdomen MRI-01/23 -Consultation-01/23 -Morhpine 4gm- MAR, 01/23 (This form is maintained as a part of the permanent medical record) 2014 [employer]. All Rights Reserved Rosa Borrego [not provided] [not provided] MTDD
--- NOTE | 2019-01-29 12:11 | EKG ---
Test Reason : Blood Pressure : / mmHG Vent. Rate : 075 BPM Atrial Rate : 075 BPM P-R Int : 154 ms QRS Dur : 088 ms QT Int : 396 ms P-R-T Axes : 035 004 020 degrees QTc Int : 442 ms Normal sinus rhythm Inferior infarct , age undetermined Abnormal ECG Confirmed by JOSE MARTIN PATTERSON D.O. ([id number]), electronic news gathering editor CHRISTAL NG ([id number]) on 01/29/2019 12:11:07 PM Referred By: Confirmed By:JOSE MARTIN PATTERSON D.O.
== END 2019-01-26 19:50 | disposition home or self-care (01) | DRG 357 ==
LOC: ERS 23:47 → CCU 01-23 03:11 → SDC/OP 01-23 03:15 → CCU 01-23 03:25 → T4-A 01-24 20:39
PROVIDERS: ADMIT Thoracic Surgery (Cardiothoracic Vascular Surgery); ATTEND Thoracic Surgery (Cardiothoracic Vascular Surgery)
PROC: 04L33DZ Occlusion of Hepatic Artery with Intraluminal Device, Percutaneous Approach (ICD-10-PCS; principal; 2019-01-23)
PROC: B4121ZZ Fluoroscopy of Hepatic Artery using Low Osmolar Contrast (ICD-10-PCS; 2019-01-23)
PROC: B4101ZZ Fluoroscopy of Abdominal Aorta using Low Osmolar Contrast (ICD-10-PCS; 2019-01-23)
DX: D49.0 Neoplasm of unspecified behavior of digestive system (principal); D62 Acute posthemorrhagic anemia; E87.1 Hypo-osmolality and hyponatremia; E87.2 Acidosis; R18.8 Other ascites; G47.33 Obstructive sleep apnea (adult) (pediatric); N40.0 Benign prostatic hyperplasia without lower urinary tract symptoms; K80.20 Calculus of gallbladder without cholecystitis without obstruction; E78.5 Hyperlipidemia, unspecified; E11.9 Type 2 diabetes mellitus without complications; I10 Essential (primary) hypertension; Z88.8 Allergy status to other drugs, medicaments and biological substances; Z98.84 Bariatric surgery status
CPT/HCPCS: 36246; 36415; 36416; 37244; 71045; 74177; 74183; 76942; 80053; 80074; 81003; 82105; 82150; 82378; 83690; 83735; 84484; 85014; 85018; 85025; 85049; 86301; 86850; 86900; 86901; 93005; 96361; 96374; 96375; C1725; C1769; J1644; J1815; J1940; J2001; J2270; J2405; J3411; J7042; Q9966; S0028

== ENCOUNTER 2019-02-06 14:21 | Emergency (ER) | payer MEDICARE, BC ==
[~2019-02-06 14:21] MED LIST: ISOVUE-370 76%-LOCM 1 ML ONE
[2019-02-06 15:22] LABS: #Eosinphils 0.1 thou/uL (0.0-0.7); #Lymphocytes 1.5 thou/uL (1.20-3.40); #Monocytes 0.6 thou/uL (0.11-0.59); %Basophils 0.1 % (0.0-1.0); %Eosinophils 1.8 % (0.0-10.0); %Lymphocytes 24.6 % (21.0-51.0); %Monocytes 9.2 % (0.0-10.0); %Neutrophils 64.3 % (42.0-75.0); Hemoglobin 11.9 g/dL (14.0-18.0); Mean Corpuscular HGB CONC 34.3 g/dL (32.0-36.0); Mean Corpuscular Hemoglobin 32.8 pg (27.0-31.0); Mean Corpuscular Volume 95.5 fL (78.0-98.0); Mean Platelet Volume 6.1 fL (7.4-10.4); Platelet Count 378 thou/uL (130-400); Red Blood Cell (RBC) Count 3.64 mill/uL (4.70-6.10); White Blood Cell (WBC) Count 6.2 thou/uL (4.8-10.8)
[2019-02-06 15:42] LABS: ALT (SGPT) 26 U/L (8-55); AST (SGOT) 30 U/L (5-34); Albumin 3.5 g/dL (3.4-4.8); Alkaline Phosphatase 105 U/L (40-110); Anion Gap 13 mmol/L (10-20); BUN (Urea Nitrogen) 13 mg/dL (8.4-25.7); Bilirubin, Total 0.6 mg/dL (0.2-1.2); Calc. Creatinine Clearance 0 mL/min (70-130); Calcium 8.4 mg/dL (7.8-10.44); Carbon Dioxide 24 mmol/L (23-31); Chloride 104 mmol/L (98-107); Estimated GFR-MDRD Greater than 90; Globulin 2.6 g/dL (2.4-3.5); Glucose 107 mg/dL (83-110); Lipase Less than 4 U/L (8-78); Potassium 4.5 mmol/L (3.5-5.1); Protein, Total 6.1 g/dL (5.8-8.1); Sodium 136 mmol/L (136-145)
[2019-02-06] MEDS ORDERED: Morphine 4 MG/ML VIAL ONE (15:45)
[2019-02-06] MEDS ORDERED: Ondansetron PF 4 MG/2 ML Vial ONE (15:45)
[2019-02-06 16:12] LABS: INR-International Normal Ratio 1.1; Prothrombin Time 13.7 SEC (12.0-14.7)
--- NOTE | 2019-02-06 16:44 | CT ---
CT OF ABDOMEN AND PELVIS PERFORMED WITH INTRAVENOUS CONTRAST ENHANCEMENT: History: Abdominal pain, onset on Thursday has gotten progressively worse this afternoon. Reports re cent abdominal swelling. Liver mass was noted on recent CT examination for which the patient is being worked up. No biopsy has been performed. Comparison: 01-23-19 FINDINGS: Lung bases show some linear scarring. No pulmonary nodules. The large right lobe liver mass is again demonstrated measuring approximately 6 x 3 x 10 cm in size. The capsular hemorrhage that was noted on the prior examination is definitely improved and the blood along the capsule margin and fluid adjacent to the spleen are also improved as compared to that exam. The spleen and pancreas regions are unremarkable and the gallbladder is not distended. There is some increased attenuation in the neck of the gallbladder could be on the basis of stones. Right and left adrenal glands and right and left kidneys are normal in size. There is no evidence for obstruction. CT OF PELVIS PERFORMED WITH CONTRAST ENHANCEMENT: The bladder is somewhat distended. There is some residual high attenuation fluid deep within the pelv is but this is improved as compared to the previous exam. No significant pelvic lymphadenopathy or ma ss. What appears to be a left sided hydrocele is partially visualized. IMPRESSION: 1. Large right lobe liver mass. The pericapsular hemorrhage has diminished as compared to the previou s 01-23-19 study. No new process is identified. The hyperdense fluid within the pelvis which also comp atible with hemorrhage is also decreased as compared to the prior study. POS: [facility]
[2019-02-06 17:27] LABS: Bilirubin Negative (Negative); Blood, Urine Negative (Negative); Clarity Clear (Clear); Glucose, Urine (Dipstick) 150 mg/dL (Negative); Leukocyte Negative Leu/uL (Negative); Nitrite Negative (Negative); Protein, Urine (Dipstick) Negative (Neg-Trace); Urobilinogen Normal mg/dL (Less than 2)
--- NOTE | 2019-02-06 18:03 | ULT ---
GALLBLADDER ULTRASOUND: History: Right upper quadrant pain. Comparison: CT done earlier today. FINDINGS: Real-time imaging of the right upper quadrant shows some echogenic material in the gallbladder neck b ut this does not definitely shadow and probably just represents sludge versus sludge with small nonsh adowing stones. The gallbladder wall is not thickened. Common duct is 4 mm. Right lobe liver mass is again demonstrated. The right kidney is normal in size and not obstructed. T he pancreas is obscured. IMPRESSION: 1. Nonshadowing echogenic material in the gallbladder neck probably related to sludge. 2. Right lobe liver mass again demonstrated. POS: [facility]
== END 2019-02-06 18:31 | disposition home or self-care (01) ==
LOC: ERS 14:21
DX: R16.0 Hepatomegaly, not elsewhere classified (principal); R10.11 Right upper quadrant pain; Z87.891 Personal history of nicotine dependence; E11.9 Type 2 diabetes mellitus without complications; Z79.84 Long term (current) use of oral hypoglycemic drugs
CPT/HCPCS: 36415; 74177; 76705; 80053; 81003; 82140; 83605; 83690; 85025; 85610; 96374; 96375; J2270; J2405; Q9966

== ENCOUNTER 2019-07-03 07:52 | Emergency (ER) | payer MEDICARE, BC ==
[2019-07-03] MEDS ORDERED: Adacel (T-DAP) 0.5 ML SYRINGE ONE (08:30)
[2019-07-03] MEDS ORDERED: Ketorolac Tromethamine 30 MG/ML VIAL ONE (08:30)
--- NOTE | 2019-07-03 09:27 | CT ---
EXAM: CT cervical spine PROVIDED CLINICAL HISTORY: Mechanical fall one day ago. Patient hit head. Left-sided neck and shoulder pain. TECHNIQUE: Contiguous axial CT images are obtained through the cervical spine from the skull base to the T1-2 le tereza. Sagittal and coronal reformatted images are provided. COMPARISON: None FINDINGS: No evidence for fracture or traumatic subluxation. No prevertebral soft tissue swelling apparent. Minimal scarring is seen posterior aspect lung apices bilaterally. Visualized thyroid gland demonstrates a grossly normal nonenhanced CT appearance. A linear gas density is seen adjacent to the posterior aspect of the cricoid cartilage on the left. T his is not thought to be posttraumatic. Vascular calcifications are seen in the carotid arteries. IMPRESSION: No evidence for fracture or traumatic subluxation.
[2019-07-03 10:14] LABS: #Basophils 0.1 thou/uL (0.0-0.2); #Lymphocytes 0.8 thou/uL (1.20-3.40); #Monocytes 0.6 thou/uL (0.11-0.59); #Neutrophils 4.2 thou/uL (1.40-6.50); %Basophils 2.2 % (0.0-1.0); %Eosinophils 0.5 % (0.0-10.0); %Lymphocytes 13.3 % (21.0-51.0); %Monocytes 9.7 % (0.0-10.0); %Neutrophils 74.3 % (42.0-75.0); Mean Corpuscular HGB CONC 33.1 g/dL (32.0-36.0); Mean Corpuscular Hemoglobin 29.9 pg (27.0-31.0); Mean Corpuscular Volume 90.2 fL (78.0-98.0); Mean Platelet Volume 7.1 fL (7.4-10.4); Platelet Count 359 thou/uL (130-400); RBC Distribution Width 15.6 % (11.5-14.5); White Blood Cell (WBC) Count 5.7 thou/uL (4.8-10.8)
[2019-07-03 10:37] LABS: ALT (SGPT) 117 U/L (8-55); AST (SGOT) 238 U/L (5-34); Albumin 3.9 g/dL (3.4-4.8); Alkaline Phosphatase 128 U/L (40-110); Anion Gap 14 mmol/L (10-20); BUN (Urea Nitrogen) 15 mg/dL (8.4-25.7); Bilirubin, Total 0.8 mg/dL (0.2-1.2); Calc. Creatinine Clearance 0 mL/min (70-130); Calcium 9.2 mg/dL (7.8-10.44); Carbon Dioxide 27 mmol/L (23-31); Chloride 100 mmol/L (98-107); Estimated GFR-MDRD 90; Globulin 2.6 g/dL (2.4-3.5); Glucose 91 mg/dL (83-110); Protein, Total 6.5 g/dL (5.8-8.1); Sodium 136 mmol/L (136-145)
[2019-07-03] MEDS ORDERED: Bacitracin 1 PK ONE ×2 (11:12→11:19)
--- NOTE | 2019-07-03 11:20 | RAD ---
LEFT ELBOW FOUR VIEWS: HISTORY: Injury from a fall. FINDINGS: There is rotation of the elbow on the lateral view, which lowers the sensitivity of this study. No ac will fracture or dislocation. IMPRESSION: No acute fracture or dislocation. POS: [facility]
--- NOTE | 2019-07-03 11:21 | RAD ---
LEFT SHOULDER THREE VIEWS: HISTORY: Injury from a fall. FINDINGS/IMPRESSION: Mild degenerative and osteoarthrosis changes. Undersurface spur of the lateral acromion. No fracture or dislocation. POS: [facility]
[2019-07-03] MEDS ORDERED: Lidocaine 5% Patch TD SCH (11:30)
--- NOTE | 2019-07-03 11:56 | RAD ---
PORTABLE CHEST ONE VIEW: HISTORY: Left sided neck and shoulder pain. FINDINGS: Blunting of both costophrenic angles, stable. Heart size within normal limits. Minimal increased line ar and interstitial markings bilaterally in the perihilar regions but stable. IMPRESSION: Overall stable examination. No new process. POS: [facility]
--- NOTE | 2019-07-03 12:03 | CT ---
BRAIN CT WITHOUT IV CONTRAST: Date; 07/03/2019 HISTORY: Injury from a mechanical fall yesterday. FINDINGS: No focal mass or midline shift. No intra or extra-axial hemorrhage. Sinuses and mastoids are clear. IMPRESSION: No significant acute intracranial process. POS: [facility]
[2019-07-03] MEDS ORDERED: Lidocaine Patch Removal 1 EACH TOP SCH (23:59)
== END 2019-07-03 12:00 | disposition home or self-care (01) ==
LOC: ERS 07:52
DX: S51.801A Unspecified open wound of right forearm, initial encounter (principal); S46.912A Strain of unspecified muscle, fascia and tendon at shoulder and upper arm level, left arm, initial encounter; S16.1XXA Strain of muscle, fascia and tendon at neck level, initial encounter; S50.312A Abrasion of left elbow, initial encounter; E11.9 Type 2 diabetes mellitus without complications; Z87.891 Personal history of nicotine dependence; Z79.899 Other long term (current) drug therapy; Z79.84 Long term (current) use of oral hypoglycemic drugs; W22.8XXA Striking against or struck by other objects, initial encounter
CPT/HCPCS: 36415; 70450; 71045; 72125; 80053; 84484; 85025; 90471; 90715; 93005; 96372; J1885

== ENCOUNTER 2019-07-19 07:47 | Outpatient (CLI) | payer MEDICARE, BC ==
--- NOTE | 2019-07-19 09:33 | MRI ---
MRI ABDOMEN WITH AND WITHOUT CONTRAST: History: Malignant neoplasm of liver. Comparison: CT examination February 06, 2019. Findings: Moderate layering right pleural effusion. Trace left pleural effusion. There has been marked interval size increase of the liver mass. The right lobe of the liver mass alayna ures up to 19 cm in greatest dimension. There is near complete replacement of hepatic segment 8 and 5 at this mass are also satellite lesions within hepatic segment 4A, 4B, 3, and the caudate lobe. The re is greater than 50% parenchymal involvement of this mass. Extensive internal central necrosis. Peripheral enhancing capsule. There is mass effect upon the righ t kidney. Spleen is unremarkable. Pancreas is unremarkable. No cholelithiasis. There are internal foci of hemorrhage within this mass. Background bone marrow signal despite is unremarkable. Impression: 1. Marked progression of disease with replacement of the anterior right lobe of liver with the primar y hepatic mass and numerous new satellite lesions involving hepatic segments 4A, 4B, 2, and caudate lobe. There is greater than 50% parenchymal involvement with tumor. 2. Small-moderate right layering pleural effusion with trace left pleural effusion. 3. Moderate internal necrosis and hemorrhage within the primary hepatic mass. Transcribed Date/Time: 07/19/2019 9:52 AM
[2019-07-19] MEDS ORDERED: Magnevist 469MG/ML 20 ML VIAL ONE (14:37)
== END 2019-07-19 07:48 | disposition home or self-care (01) ==
LOC: BICMRI 07:47
PROVIDERS: ATTEND Radiology Radiation Oncology
DX: C22.8 Malignant neoplasm of liver, primary, unspecified as to type (principal); K76.2 Central hemorrhagic necrosis of liver
CPT/HCPCS: 74183; A9579

== ENCOUNTER 2019-08-09 11:46 | Outpatient (CLI) | payer MEDICARE, BC ==
[~2019-08-09 11:46] MED LIST changes: -ISOVUE-370 76%-LOCM 1 ML ONE; +Magnevist 469MG/ML 20 ML VIAL ONE
[2019-08-09 12:35] LABS: Estimated GFR-MDRD - POC Greater than 90
--- NOTE | 2019-08-09 13:41 | MRI ---
MRI BRAIN WITH AND WITHOUT CONTRAST: Multiplanar, multisequential imaging of brain obtained. Postcontrast images obtained with administra tion of IV MultiHance. INDICATION: Headaches. Malignant neoplasm of liver. Assess for metastatic disease. FINDINGS: There is mild cortical volume loss consistent with age. Mild chronic ischemic white matter change. No evidence of restricted diffusion. No evidence of infarct. No mass or edema identified. No abnormal enhancement identified. No evidence of metastatic lesion. Intracranial internal carotid arteries and cerebral arteries show expected flow voids. Paranasal sinuses and mastoids appear clear. IMPRESSION: 1. Mild cortical volume loss and mild chronic ischemic white matter change. 2. No acute process. No evidence of metastatic lesion. POS: [facility]
== END 2019-08-09 11:47 | disposition home or self-care (01) ==
LOC: MRI 11:46
PROVIDERS: ATTEND Internal Medicine Medical Oncology
DX: R51 Headache (principal); C22.8 Malignant neoplasm of liver, primary, unspecified as to type; I67.82 Cerebral ischemia; G93.89 Other specified disorders of brain
CPT/HCPCS: 70553; 82565